=== PATIENT | female | born 1970 | race Caucasian/White ===

== ENCOUNTER 2025-03-16 02:15 | Day surgery (SDC) | payer OTHER, SELFPAY ==
[2025-03-06 09:40] VITALS: BMI 38.0
--- NOTE | 2025-03-06 09:50 | PC.NURSE ---
Addendum entered by Charan Epstein RN 03/06/25 09:59: We will need at PT/INR, PTT, BMP AND EKG. We will do these day of stay unless you are able to do them and send them to us before surgery date. Thanks Carolyn. Original Note: Report to hospital entrance 7 to the right of the green pavilion located off [facility] by the Dr's parking lot, at time _1200_ on date _[id number]_. Planned Procedure Time: _2pm_.? Time changes happen often and if your time is changed the preop area will call you the afternoon before. - You and your visitor will be asked to self-screen and do not enter if you have any COVID symptoms. Please call surgeon if you need to reschedule. - A mask is optional within the hospital at this time. Patients may have clear liquids (water, carbonated beverages, clear teas, apple juice) until 3 hours prior to surgery with a maximum of 20 ounces. - No food from midnight until time of surgery and no smoking, or chewing tobacco (or any form of nicotine). No chewing gum, candy or mints. Take only the following medications with a SIP of water on the morning of surgery: __Levothyroxine, Spiriva inhaler and if needed Albuterol inhaler. DO NOT STOP ANY OF YOUR OTHER PRESCRIPTION MEDICATIONS PRIOR TO SURGERY EXCEPT THE FOLLOWING Hold all vitamins and supplements for 3 days per anesthesiologist. Medications to discontinue per physician Date to take last dose Please no make-up, nail slovak, hairspray, perfume, deodorant, or body powder the day of surgery.? No jewelry (including any body piercings) or valuables the day of surgery, leave them at home.? Please take a shower or bath the night before, or the morning of, surgery with an antibacterial soap.? Wear comfortable, loose fitting clothing.? - Jewelry must be removed prior to entering the operating room.? Rings and piercings that are not removed may be cut off. - The hospital will not accept responsibility for valuables.? - Please leave all valuables, including medications, at home the day of surgery. If you are going home after surgery, a licensed ross carrier driver must drive you home.? - NO public transportation without another adult if you receive anesthesia. - We recommend that an adult stay with you for 24 hours following discharge. - We also recommend that you do not drive, make important decision, drink alcoholic beverages, or take any drugs that were not prescribed by your health care provider for at least 24 hours after your discharge time. Follow any additional instructions given to you from your surgeon. Telephone instructions given to __Carolyn Gant___and asked if any additional questions and then verbalized understanding. Patient advised to call surgeon office or pre surgery nurse liaison [phone] if any additional questions.
[2025-03-16] VITALS (7 sets, daily range): BP systolic 119–149; BP diastolic 56–73; PULSE 77–90; RESP 12–20; TEMP 36.3–36.8; O2SAT 96–100
--- NOTE | ~2025-03-16 | XR_ITS ---
EXAMINATION: XR abdomen/kub 1V DATE: 03/16/2025 15:33 INDICATION: Missing suture needle TECHNIQUE: A supine view of the abdomen on 3 radiographs was obtained. COMPARISON: None. FINDINGS: No radiopaque foreign bodies identified in the pelvis or visualized abdomen. Portions of the right up per quadrant in the region of the liver are not included within the [id number]. Normal bowel gas p attern. IMPRESSION: 1. No radiopaque foreign bodies identified pelvis or visualized abdomen which excludes a portion of t he right upper quadrant. Reviewed, dictated and finalized at location A. IMPRESSION: 1. No radiopaque foreign bodies identified pelvis or visualized abdomen which e xcludes a portion of the right upper quadrant.
--- OUTSIDE RECORDS SUMMARY | 2025-03-16 02:29 | XMS_ITS | Clinical Summary ---
Author Organization [facility] Address [facility] [place] [address] Care Team Providers Care Head Animal Trainer Name Role Phone Soham Ocasio MD, Jens Primary Care Provider [phone] Encounters Date Type Department Care Team Description 03/05/2025 12:18 PM CDT - 03/05/2025 11:59 PM CDT Hospital Encounter [facility] [address] [place], [place] [id number] Jens Rousseau MD Discharge Disposition: Home or Self Care (Routine Discharge) 03/05/2025 Travel from Last 3 Months Social History Tobacco Use Types Packs/Day Years Used Date Smoking Tobacco: Never Assessed Comments Unknown Sex and Gender Information Value Date Recorded Sex Assigned at Female 03/05/2025 12:13 PM CDT Legal Sex Male 7:46 AM CDT Gender Identity Not on file Sexual Orientation Not on file Plan of Treatment Health Maintenance Due Date Last Done Comments Cervical Cancer Screening Pa p Smear (Age 30 to 64) Every 3 Years 1969 Colorectal Cancer Screening Colonoscopy (10 Years) 1969 Annual Physical 02/02/1972 Hepatitis C 1987 DTaP, Tdap and Td Vaccines ( 1 - Tdap) 02/02/1988 Hepatitis B Vaccines (1 of 3 - 19+ 3-dose series) 02/02/1988 Cervical Cancer Screening Pa p with HPV Testing (Age 30 to 64) Every 5 Years 1999 Cervical Cancer Screening with HPV 1999 Mammogram Screening 2009 Pneumococcal Vaccine: 50+ Ye ars (1 of 1 - PCV) 2019 Zoster Vaccines (1 of 2) 2019 COVID-19 Vaccine (2023-2 5 season) 2024 Meningococcal B Vaccine Aged Out No l onger eligible based on patient's age to complete this topic Meningococcal Vaccine Aged Out No dulce nohemy eligible based on patient's age to complete this topic RSV Immunizations Under 20 Months Aged Out No longer eligible based on patient's age to complete this topic Procedures Procedure Name Priority Date/Time Associated Diagnosis Comments MRI SHOULDER RT WO CON Routine 03/05/2025 1:10 PM CDT Right shoulder pain from Last 3 Months Results * MRI SHOULDER RT WO CON (03/05/2025 1:10 PM CDT) Anatomical Region Laterality Modality Shoulder Magnetic Resonan ce 03/05/2025 2:55 PM CDT Impressions 03/05/2025 3:28 PM CDT IMPRESSION: Operative changes of previous rotator cuff repair surgery. Persistent or recurrent tear in the lateral aspect supraspinatus tendon with slight superior subluxation of the head of the humerus on the glenoid the scapula narrowing the subacromial space. Joint effusion bursal fluid collections. Mild arthritis acromioclavicular joint with mild inferior spurring. Spurring at the inferior aspect of the humeral head neck junction. Ordered By: JENS ROUSSEAU V Interpreted By: Tu Durham MD, 03/05/2025 2:55 PM Narrative 03/05/2025 3:28 PM CDT [address] [place] [address] 03/05/2025, 1306 hours. HISTORY: Rotator cuff repair surgery 2011. Right shoulder pain for 6 months. EXAM: MRI the right shoulder without contrast. MR imaging was performed in the axial, the oblique sagittal and the oblique coronal planes without contrast. No comparison. FINDINGS: Motion artifact degrades image detail. Orthopedic anchor present at the anterolateral aspect of the humeral head neck junction, apparently placed as an anchor point during previous rotator cuff repair surgery. Artifact is present about the anchors are. Marked thinning or absence lateral portion supraspinatus tendon which may indicate residual defect or new tear. The midportion of the supraspinatus tendon is thin. There is a glenohumeral joint effusion with fluid extending through the defect in the supraspinatus into the subacromial and subsequently subdeltoid bursa. There is heterogeneous abnormal signal in the middle and medial portions of the supraspinatus tendon which may indicate tendinitis, tendinosis or some intrasubstance tearing. Infraspinatus and subscapularis tendons are intact. The tendon the long head of the biceps is intact and normally positioned in the bicipital groove of the humerus. There is some marginal spurring at the inferior aspect of the humeral head neck junction. Mild arthritis acromioclavicular joint with slight inferior spurring. No periarticular soft tissue mass. Procedure Note Tu Durham MD - 03/05/[address] [place] [address] 03/05/2025, 1306 hours. HISTORY: Rotator cuff repair surgery 2011. Right shoulder pain for 6months. EXAM: MRI the right shoulder without contrast. MR imaging was performed in the axial, the oblique sagittal and theoblique coronal planes without contrast. No comparison. FINDINGS: Motion artifact degrades image detail. Orthopedic anchor present at the anterolateral aspect of the humeral headneck junction, apparently placed as an anchor point during previousrotator cuff repair surgery. Artifact is present about the anchors are. Marked thinning or absence lateral portion supraspinatus tendon which mayindicate residual defect or new tear. The midportion of the supraspinatustendon is thin. There is a glenohumeral joint effusion with fluidextending through the defect in the supraspinatus into the subacromial andsubsequently subdeltoid bursa. There is heterogeneous abnormal signal inthe middle and medial portions of the supraspinatus tendon which mayindicate tendinitis, tendinosis or some intrasubstance tearing.Infraspinatus and subscapularis tendons are intact. The tendon the longhead of the biceps is intact and normally positioned in the bicipitalgroove of the humerus. There is some marginal spurring at the inferioraspect of the humeral head neck junction. Mild arthritis acromioclavicularjoint with slight inferior spurring. No periarticular soft tissue mass. IMPRESSION: Operative changes of previous rotator cuff repair surgery. Persistent orrecurrent tear in the lateral aspect supraspinatus tendon with slightsuperior subluxation of the head of the humerus on the glenoid the scapulanarrowing the subacromial space. Joint effusion bursal fluid collections.Mild arthritis acromioclavicular joint with mild inferior spurring.Spurring at the inferior aspect of the humeral head neck junction. Ordered By: JENS ROUSSEAU V Interpreted By: Tu Durham MD, 03/05/2025 2:55 PM us Jens Ocasio MD MRI Final Result from Last 3 Months Insurance [id number] [facility] [id number] Care Teams Head Animal Trainer Relationship Specialty Start Date End Date Jens Rousseau MD [facility] [address] [place] [address] PCP - General INTERNAL MEDICINE 03/05/25
--- NOTE | 2025-03-16 08:35 | ECG_ITS ---
Test Date: 2025-03-16 11:57:05 Measurements Intervals [place] Rate: 81 P: 57 MT: 162 QRS: 51 QRSD: 82 T: 49 QT: 361 QTc: 420 Interpretive Statements SINUS RHYTHM NONSPECIFIC T-WAVE ABNORMALITY BORDERLINE ECG No previous ECG available for comparison Electronically Signed On 03-16-2025 15:46:21 CDT by Sherman Aldrich M.D.
--- NOTE | 2025-03-16 12:19 | P.HP_ITS ---
H&P: HPI History of Present Illness Date/Time: 03/16/25 12:19 Chief Complaint: Right flank and right buttock subcutaneous masses Narrative: Rina is a 54 y/o female who presents to the office at the request of Dr. Perez for evaluation of multiple subcutaneous masses. These masses are located in the right flank and on the right buttock. States she noticed these about three years ago. Reports increased pain with sitting or laying on her right side. Denies any redness or drainage. Denies any noticeable increase in size. Review of Systems Review of Systems: All systems reviewed & are unremarkable except as noted in HPI and below PMFSH Past Medical History Medical History Thyroid disorder COPD (chronic obstructive pulmonary disease) Asthma Surgical History Surgical History Previous section 1987 Family History Family History Sibling Breast cancer Father Heart disease Social History Social History Smoking status: Never smoker Tobacco type: cigarettes Meds Home Medications and Allergies Home Medications ?Medication ?Instructions ?Recorded ?Confirmed ?Type albuterol sulfate 90 mcg/actuation 1 puff inhalation Q4H PRN 12/09/24 03/06/25 History aerosol inhaler (Ventolin HFA) shortness of breath or wheezing tiotropium bromide 1.25 2 puff inhalation DAILY 12/09/24 03/06/25 History mcg/actuation mist for inhalation (Spiriva Respimat) atorvastatin 20 mg tablet (Lipitor) 20 mg PO DAILY 03/06/25 03/06/25 History levothyroxine 25 mcg tablet 25 mcg PO DAILY 03/06/25 03/06/25 History (Euthyrox) Allergies Allergy/AdvReac Type Severity Reaction Status Date / Time No Known Allergies Allergy Verified 03/06/25 09:36 Exam Const: General: cooperative, comfortable and no acute distress Resp: Auscultation: clear to auscultation bilaterally Cardio: Rate: regular rate Rhythm: regular rhythm GI: Inspection: normal to inspection GI Palp: No abdominal tenderness and Yes Soft to palpation Skin: Other: 7x5cm right flank subcutaneous mass. Wel l circumscribed, rubbery. Moderately tender to palpation. Consistent with lipoma. 7x6cm right buttock subcutaneous mass. W ell circumscribed, rubbery. Moderately tender to palpation. Consistent with lipoma. Assessment and Plan Assessment and plan (1) Right flank mass: Code(s): R19.00 - Intra-abdominal and pelvic swelling, mass and lump, unspecified site Status: Acute Assessment and Plan: will set up for excisional biopsy of most likely subcutaneous lipoma (2) Mass of buttock: Code(s): R22.2 - Localized swelling, mass and lump, trunk Status: Acute Assessment and Plan: will set up for excisional biopsy of most likely subcutaneous lipoma
--- NOTE | 2025-03-16 12:22 | WPDHPUPDATE1 ---
History and Physical Update Update Date/Time: 03/16/25 12:22 History and Physical has been reviewed, including an updated exam of the patient. There are NO changes in the patient's condition. Risks, benefits, and alternatives have been discussed and questions answered. Patient agrees to proceed with procedure.
[2025-03-16 13:19] LABS: Anion Gap 11 mmol/L (4-12); Blood Urea Nitrogen 17 mg/dL (7-17); Calcium 8.9 mg/dL (8.4-10.2); Carbon Dioxide 27 mmol/L (22-30); Chloride 102 mmol/L (98-107); Estimated CRCL calculation 68 ml/min; Estimated Glomerular Filt Rate > 60; Glucose 86 mg/dL (65-110); Potassium 3.9 mmol/L (3.4-5.0); Sodium 140 mmol/L (137-145)
[2025-03-16 13:21] LABS: INR 0.9; Prothrombin Time 13.1 Seconds (11.1-14.7)
[2025-03-16 13:22] LABS: Partial Thromboplastin Time 28.7 Seconds (22.3-36.8)
--- NOTE | 2025-03-16 13:27 | P.PNAN_ITS ---
Anes - Initial Pre Proc Eval Procedure: Operation Date: 03/16/25 14:00 Proposed Procedures p Excisional Biopsy Right Flank Mass and Right Buttock Mass - Sarah Kay MD Date/Time: 03/16/25 13:27 Surgeon: Sarah Kay MD Pre Op Diagnosis: right flank mass, right buttock mass Patient Data Age: 55 Gender: F Height: 1.57 m Weight: 98.4 kg Last Vital Signs Temp 36.8 C 03/16/25 13:13 Pulse 79 03/16/25 13:13 Resp 20 03/16/25 13:13 BP 144/60 H 03/16/25 13:13 Pulse Ox 100 03/16/25 13:13 O2 Del Method Room Air 03/16/25 13:13 Allergies Allergy/AdvReac Type Severity Reaction Status Date / Time No Known Allergies Allergy Verified 03/06/25 09:36 Home Medications ?Medication ?Instructions ?Recorded ?Confirmed ?Type albuterol sulfate 90 mcg/actuation 1 puff inhalation Q4H PRN 12/09/24 03/06/25 History aerosol inhaler (Ventolin HFA) shortness of breath or wheezing tiotropium bromide 1.25 2 puff inhalation DAILY 12/09/24 03/06/25 History mcg/actuation mist for inhalation (Spiriva Respimat) atorvastatin 20 mg tablet (Lipitor) 20 mg PO DAILY 03/06/25 03/06/25 History levothyroxine 25 mcg tablet 25 mcg PO DAILY 03/06/25 03/06/25 History (Euthyrox) Laboratory Tests 03/16/25 03/16/25 12:47 12:56 PT 13.1 Seconds (11.1-14.7) INR 0.9 APTT 28.7 Seconds (22.3-36.8) Sodium 140 mmol/L (137-145) Potassium 3.9 mmol/L (3.4-5.0) Chloride 102 mmol/L (98-107) Carbon Dioxide 27 mmol/L (22-30) Anion Gap 11 mmol/L (4-12) BUN 17 mg/dL (7-17) Creatinine 0.86 mg/dL (0.7-1.0) Estim Creat Clear Calc 68 ml/min Estimated GFR > 60 (59 - ) Glucose 86 mg/dL (65-110) Calcium 8.9 mg/dL (8.4-10.2) Patient hx anesthesia problems: none Family hx anesthesia problems: none Results Review: All pre-operative results and documents have been reviewed as part of the pre- operative evaluation. [facility] Past Medical History Medical History Thyroid disorder COPD (chronic obstructive pulmonary disease) Asthma Surgical History Surgical History Previous section 1987 Family History Family History Sibling Breast cancer Father Heart disease Social History Social History Smoking status: Never smoker Tobacco type: cigarettes Anes - Eval Final PreProcedure Day of Procedure 03/16/25 13:27 Patient weight: obese Heart: regular rate and rhythm Lungs: decreased breath sounds Airway: Mallampati scale class II Neurological: alert and oriented Last oral intake: >/= 8 hours ASA classification: III Emergent: no Anesthetic plan: proceed Anesthesia type and monitoring: general ETT and standard monitoring Results Review: All pre-operative results and documents have been reviewed as part of the pre- operative evaluation. Informed Consent: The patient's anesthetic plan and its attendant risks and benefits were discussed with the patient/family/POA. Questions were solicited and answers provided to the satisfaction of the patient/family/POA.
[2025-03-16] MEDS: SCOPOLAMINE 1 MG PATCH 1 PATCH TRANSDERM (13:30)
[2025-03-16] MEDS: ceFAZolin 2 GM/D5W 50 ML 2 GM/50 ML BAG IVPB (14:23)
[2025-03-16] MEDS: BUPIVACAINE/EPINEPHRINE 0.5% 30 ML VIAL 20 ML INFILTRATE (14:47)
--- NOTE | 2025-03-16 15:21 | P.OP_ITS ---
Procedure Note - Detailed Date of Procedure 03/16/25 Pre-op Diagnosis right flank mass, right buttock mass Post-op Diagnosis Same Procedure Performed Excisional biopsy right flank subcutaneous mass measuring 11 x 5 cm, right buttock mass measuring 8 x 5 cm Surgeon Sarah Kay MD Anesthesia General and Local Indications 55-year-old female presenting to office with moderate size subcutaneous masses in the right flank and right buttock. Patient reports growth over time and now areas are quite symptomatic, especially to pressure, palpation. Findings 11 x 5 cm right flank subcutaneous mass most consistent with well- circumscribed lipoma, 8 x 5 cm right buttock subcutaneous mass most consistent with multi lobular lipoma Description of Procedure The patient was taken the operating room placed in lateral position. After adequate induction of general anesthesia, the patient was prepped and draped in the normal sterile fashion. A time-out was then done to verify the patient's identity, as well as the procedure being performed. I began by localizing the dermis and superficial subcutaneous tissue in and around these masses noted in the right flank and right buttock. I then used a 11 blade scalpel to make a incision over the mass in the right flank. This was carried down through the dermis into the subcutaneous tissue. A well encapsulated fatty mass was noted at this point, most consistent with a lipoma. Using very careful dissection both sharply with the Bovie cautery and bluntly with a hemostat was able to get around and dissect out this mass. Once completely excised, the mass measured 11 x 5 cm. It will be sent to pathology for further review. Hemostasis was gained with the Bovie cautery. The cavity was then washed out. No other pathology was noted. I then closed the subcutaneous tissue with 3-0 Vicryl suture. The skin was closed with 4-0 Monocryl subcuticular suture. Of note, the mass was completely contained within the subcutaneous tissue and did not extend into the muscle. I then made an incision with 11 blade scalpel over the right buttock mass. This was carried down through the dermis and into the subcutaneous tissue. A multi lobular mass was noted at this point. This was most consistent with a multi lobular lipoma. Using dissection with the Bovie cautery I was able to remove multiple pieces of this mass. This mass extended throughout the subcutaneous tissue, however did not extend into the muscle. Once all this was excised, it measured 8 x 5 cm. It will now be sent to pathology for further review. The cavity was then copiously washed out and hemostasis was gained with the Bovie cautery. I then closed subcutaneous tissue with 3-0 Vicryl suture. The skin was closed with 4-0 Monocryl subcuticular suture. Dermabond was placed. The patient tolerated the procedures well. She was extubated postoperatively. She will be transferred to the recovery in stable condition. Estimated Blood Loss 10 Pathology Yes Complications No immediate complications Condition Stable Disposition PACU [facility] Billing Surgery - Charge Forward: Surgery Billing
[2025-03-16] MEDS: LACTATED RINGERS 1,000 ML 30 ML IV CONT (15:30)
[2025-03-16] MEDS: oxyCODONE HCL (*CRX) 5 MG TAB IR PO (16:26)
== END 2025-03-16 17:00 | disposition home or self-care (01) ==
PROVIDERS: Anesthesiology; Visit Provider Surgery
PROC: (CPT 21931; principal; 2025-03-16 14:00)
DX: D17.1 Benign lipomatous neoplasm of skin and subcutaneous tissue of trunk (principal); E66.9 Obesity, unspecified; Z68.39 Body mass index [BMI] 39.0-39.9, adult
CPT/HCPCS: 21931 ×2; 36415; 74018; 80048; 85610; 85730; 88304; 93005; A9270; J0690; J1100; J2003; J2405; J2704; J3010; J7120